=== PATIENT | female | born 2000 | race Caucasian/White ===

== ENCOUNTER → 2018-06-22 15:15 | Outpatient (CLI) | payer MEDICAID, SELFPAY ==
[2018-06-22 18:51] LABS: Pregnancy, Serum, hCG Quali. NEGATIVE Negative (0-9 Nonpreg)
== END ==
PROVIDERS: Visit Provider Obstetrics & Gynecology
DX: N91.2 Amenorrhea, unspecified (principal)
CPT/HCPCS: 84703

== ENCOUNTER → 2018-08-06 15:04 | Outpatient (CLI) | payer MEDICAID, SELFPAY ==
[2018-08-06 17:49] LABS: hCG Titer Quant., Serum 189 mIU/mL (<9 non-preg)
[2018-08-06 18:48] LABS: Chlamydia Trachomatis by PCR Negative (Negative); Neisserai gonorrhoeae by PCR Negative (Negative); Probe Check PASS; Sample Adequacy Control PASS; Specimen Processing Control PASS
== END ==
PROVIDERS: Visit Provider Obstetrics & Gynecology
DX: Z32.01 Encounter for pregnancy test, result positive (principal); Z11.3 Encounter for screening for infections with a predominantly sexual mode of transmission
CPT/HCPCS: 84702; 87491; 87591

== ENCOUNTER → 2018-08-10 08:40 | Outpatient (CLI) | payer MEDICAID, SELFPAY ==
[2018-08-10 10:50] LABS: hCG Titer Quant., Serum 997 mIU/mL (<9 non-preg)
== END ==
PROVIDERS: Visit Provider Obstetrics & Gynecology
DX: Z32.01 Encounter for pregnancy test, result positive (principal); Z11.3 Encounter for screening for infections with a predominantly sexual mode of transmission
CPT/HCPCS: 36415; 84702

== ENCOUNTER → 2018-09-01 15:04 | Outpatient (CLI) | payer MEDICAID, SELFPAY ==
[2017-06-29 10:06] VITALS: BMI 34.4
[2018-09-01 15:42] LABS: Color, Urine Yellow (Yellow); Glucose, Dipstick Normal (Normal); Ketone-Dipstick Negative (Negative); Leukocyte Esterase-Dipstick 500 /ul (Negative); Nitrite-Dipstick Negative (Negative); Occult Blood-Urine Negative /ul (Negative); Protein-Dipstick Negative (Negative); Specific Gravity, Urine 1.015 (1.002-1.030); Urine Bilirubin Dipstick Negative (Negative); Urine Clarity Sl. Cloudy (Clear); Urine Urobilinogen Normal (Normal)
[2018-09-01 15:56] LABS: Absolute Lymphocyte Count 2.31 X10^3/ul (0.83-4.51); Absolute Neutrophil Count 8.7 X10^3/uL (2.0-7.7); Basophil# 0.05 X10^3/uL; Basophil% 0.4 % (0-1); Eosinophil# 0.22 X10^3/uL; Eosinophils% 1.8 % (0-5); Hemoglobin 12.8 g/dl (12.0-15.0); Lymphocyte # 2.31 X10^3/ul (4.0); Lymphocyte % 19.2 % (19-41); Mean Corpuscular Volume 81.1 fL (81-99); Mean Platelet Vol. 9.7 fl (6.2-12.0); Monocyte% 5.8 % (0-10); Neutrophil # 8.71 X10^3/uL (2.7-7.7); Neutrophil % 72.6 % (47-70); Platelet Count 328 K/mm3 (150-450); RBC Distribution Width CV 14.3 % (11.6-14.6); RBC Distribution Width SD 41.3 fl (35.1-43.9); Red Blood Count 4.93 M/mm3 (4.2-5.4)
[2018-09-01 16:01] LABS: Amphetamine Urine VISTA NEGATIVE (<1000 ng/mL); Barbiturate Urine VISTA NEGATIVE (< 200 ng/mL); Benzodiazepine Urine VISTA NEGATIVE (< 200 ng/mL); Cocaine Urine VISTA NEGATIVE (< 300 ng/mL); Ecstacy Urine VISTA NEGATIVE (< 500 ng/mL); Methadone Urine VISTA NEGATIVE (< 300 ng/mL); PCP Urine VISTA NEGATIVE (< 25 ng/mL); POSITIVE COUNT NO; POSITIVE DIFFERENTIAL NO; POSITIVE MORPHOLOGY NO; THC Urine VISTA NEGATIVE (< 50 ng/mL); Vista UDS pH Range 5
[2018-09-01 16:30] LABS: Thyroid Stim Hormone (TSH) 0.92 uIU/mL (0.358-3.74)
[2018-09-01 17:08] LABS: HIV - WCH Non-Reactive (Nonreactive); Rubella IgG 22.5 IU/mL
[2018-09-04 07:03] LABS: Prenatal RPR NONREACTIVE (NONREACTIVE)
[2018-09-04 11:58] LABS: HEPATITIS B SURFACE AG Negative (Negative); Hep C Antibodies <0.1 s/co ratio (0.0-0.9); V-Zoster IgG (Immunity) 725 index (Immune >165)
--- OUTSIDE RECORDS SUMMARY | 2018-10-28 07:18 | XMS RPT_ITS ---
:2000 Author Organization OHIP Care Team Providers Name Role Phone DR ISAIAH BRUNNER Admitting Unavailable KANNAN, DR ISAIAH Lopez Attending Unavailable AYAN GRACIA MD Referring Unavailable AYAN GRACIA MD Consulting Unavailable DR ISAIAH BRUNNER Primary Care Unavailable PROVIDER, UNKNOWN Consulting Unavailable Nghia Ames Attending Unavailable Primay Care Physicia, No Primary Care Unavailable Nghia Ames Attending Unavailable Primay Care Physicia, No Primary Care Unavailable Nghia Ames Attending Unavailable Primay Care Physicia, No Primary Care Unavailable Darrick Duran Attending Unavailable Primay Care Physicia, No Primary Care Unavailable PROBLEMS PROBLEMS DATE TYPE CONDITION / CODE ATTENDING STATUS SOURCE 09/01/2018 Unknown Z34.81 - Encounter Nghia Ames Active [facility] for supervision of Community other normal Hospital , first Repository trimester / Z34.81(ICD-10) 08/10/2018 Unknown Z11.3 - Encounter Nghia Ames [facility] for screening for Community infections with a Hospital predominantly Repository sexual mode of transmission / Z11.3(ICD-10) 08/10/2018 Unknown Z32.01 - Encounter Nghia Ames [facility] for test, Community result positive / Hospital Z32.01(ICD-10) Repository 06/22/2018 Unknown N91.2 - Amenorrhea, Darrick Duran Active [facility] unspecified / Community N91.2(ICD-10) Hospital Repository PROCEDURES PROCEDURES No Procedure Records FoundRESULTS RESULTS URINE DRUG SCREEN Collected: 09/01/2018 Status: F Source: [place] (VISTA) 3:06 PM [facility] REPOSITORY Order Comment: Comments: UNK IMMUNITY List of Drugs Taken or Suspected? UNK TYPE CODE TESTS RESULT OUT OF RANGE REFERENCE UNITS LAB L505.0075 TO BE Normal CONFIRMED Result Comment: CONFIRMATORY TESTING FOR ALL POSITIVE URINE DRUG SCREEN RESULTS WILL ONLY BE SENT OUT UPON PHYSICIAN ORDER. VISTA Urine Drug Screen methods provide only preliminary analytical test results. A more specific alternate chemical method must be used in order to obtain a confirmed analytical result. Gas chromatography/mass spectrometery (GC/MS) is the preferred confirmatory method. Clinical consideration and professional judgement should be applied to any drug of abuse test result, particularly when preliminary positive results are used. URINE TCA TESTING MUST BE ORDERED SEPARATELY. USE TEST MNEMONIC: [facility] LAB L505.5005 VISTA UDS PH 5 Normal LAB L505.5015 <1000 ng/mL AMPHETAMINES Normal NEGATIVE LAB L505.5025 < 200 ng/mL BARBITIURATES Normal NEGATIVE LAB L505.5035 < 200 ng/mL BENZODIAZIPINE Normal NEGATIVE LAB L505.5045 < 300 ng/mL COCAINE Normal NEGATIVE LAB L505.5055 < 500 ng/mL ECSTACY Normal NEGATIVE LAB L505.5065 < 300 ng/mL METHADONE Normal NEGATIVE LAB L505.5075 < 300 ng/mL OPIATES Normal NEGATIVE LAB L505.5085 < 25 ng/mL PCP Normal NEGATIVE LAB L505.5095 < 50 ng/mL THC Normal NEGATIVE Performed By: #### L505.5000 #### [facility] [address] [facility] [place], [address] URINALYSIS, ROUTINE Collected: 09/01/2018 Status: F Source: [place] (DIPSTICK) 3:06 PM [facility] REPOSITORY Order Comment: Comments: UNK IMMUNITY How was Urine Obtained? Urine, Random TYPE CODE TESTS RESULT OUT OF RANGE REFERENCE UNITS LAB L400.3000 Yellow COLOR Normal Yellow LAB L400.3050 Clear Normal CLARITY Sl. Cloudy LAB L400.3200 Normal mg/dl Normal GLUCOSE, UR Normal LAB L400.3300 Negative mg/dL Normal BILIRUBIN URINE Negative LAB L400.3400 Negative mg/dl Normal KETONE UR Negative LAB L400.3465 1.002-1.030 Normal SP.GR. DIPSTX 1.015 LAB L400.3550 5.0 - 8.0 pH UR Normal 6.0 LAB L400.3600 Negative mg/dl PROT Normal DIPSTX Negative LAB L400.3700 Normal mg/dl Normal UROBILI Normal LAB L400.3750 Negative Normal NITRITE UR Negative LAB L400.3780 Negative /ul Normal OCCULT BLOOD-UR Negative LAB L400.3800 Negative /ul High LEUK ESTERASE 500 Performed By: #### L400.2011 #### [facility] [address] [place], [place], [address] CBC W/DIFF, AUTOMATED Collected: 09/01/2018 Status: F Source: [place] 3:06 PM [facility] REPOSITORY TYPE CODE TESTS RESULT OUT OF RANGE REFERENCE UNITS LAB L100.1000 4.4-11.0 K/mm3 High WBC 12.0 LAB L100.1200 4.2-5.4 M/mm3 Normal RBC 4.93 LAB L100.1300 12.0-15.0 g/dl Normal HGB 12.8 LAB L100.1400 37-47 % Normal HCT 40.0 LAB L100.1500 81-99 fL Normal MCV 81.1 LAB L100.1600 27.0-32.0 pg Low MCH 26.0 LAB L100.1700 32-36 g/gl Normal MCHC 32.0 LAB L100.1810 11.6-14.6 % Normal RDW CV 14.3 LAB L100.1820 35.1-43.9 fl Normal RDW SD 41.3 LAB L100.1900 150-450 K/mm3 Normal PLT 328 LAB L100.2000 6.2-12.0 fl Normal MPV 9.7 LAB L100.2100 47-70 % High NEUT% 72.6 LAB L100.2200 19-41 % Normal LY% 19.2 LAB L100.2300 0-10 % Normal MONO% 5.8 LAB L100.2400 0-5 % Normal EO% 1.8 LAB L100.2500 0-1 % Normal BASO% 0.4 LAB L100.2550 0.0-0.9 % Normal IM GRAN % 0.200 Result Comment: IG% - Immature Granulocytes (promyelocytes, myelocytes and metamyelocytes) > 1% indicates that a LEFT SHIFT is Present. LAB L100.2620 2.0-7.7 X10 3/uL High Absolute Neut 8.7 LAB L100.2720 0.83-4.51 X10 3/ul Normal Absolute Lymph 2.31 Performed By: #### L100.0100 #### [facility] [address] [place], [address] THYROID STIM HORMONE Collected: 09/01/2018 Status: F Source: [place] (TSH) 3:06 PM [facility] REPOSITORY TYPE CODE TESTS RESULT OUT OF RANGE REFERENCE UNITS LAB L501.9520 0.358-3.74 uIU/mL Normal TSH 0.92 Performed By: #### L501.9520 #### [facility] [address] [place], [place], [address] RUBELLA IGG Collected: 09/01/2018 Status: F Source: [place] 3:06 PM [facility] REPOSITORY Order Comment: Comments: UNK IMMUNITY TYPE CODE TESTS RESULT OUT OF RANGE REFERENCE UNITS LAB L509.4000 IU/mL Normal Rubella IgG 22.5 Result Comment: Antibody results Interpretation of Immune Status < 5 IU/ml Presumed Non-immune 5 - < 10 IU/ml Equivocal > or = 10 IU/ml Presumed Immune Performed By: #### L509.4000, L3890.6005 #### [facility] [address] [place], [place], [address] HIV - [facility] Collected: 09/01/2018 Status: F Source: [place] 3:06 PM [facility] REPOSITORY Order Comment: Comments: UNK IMMUNITY TYPE CODE TESTS RESULT OUT OF RANGE REFERENCE UNITS LAB L3890.6005 Nonreactive Normal HIV - [facility] Non-Reactive Performed By: #### L509.4000, L3890.6005 #### [facility] [address] [place], [place], [address] T AND S-NO Collected: 09/01/2018 Status: F Source: [place] CHARGE W/PNP 3:06 PM [facility] REPOSITORY Order Comment: Reason for Type AND Screen/Red Cells: Surgery? N TYPE CODE TESTS RESULT OUT OF RANGE REFERENCE UNITS LAB B10.0800 A Normal BLOOD POSITIVE TYPE GEL LAB B100.4050 Normal Ab SCREEN NEGATIVE GEL Performed By: #### B100.7550 #### [facility] [address] [place], [address] RPR Collected: 09/01/2018 Status: F Source: [place] 3:06 PM [facility] REPOSITORY TYPE CODE TESTS RESULT OUT OF REFERENCE UNITS RANGE LAB L700.5100 NONREACTIVE Normal RPR NONREACTIVE Performed By: #### L700.5100 #### [facility] [address] [place], [place], [address] HEPATITIS B SURFACE Collected: 09/01/2018 Status: F Source: [place] AG 3:06 PM [facility] REPOSITORY Order Comment: Comments: UNK IMMUNITY TYPE CODE TESTS RESULT OUT OF RANGE REFERENCE UNITS LAB L3100.0400 Negative Normal HB Negative SURF AG Result Comment: Performed at: - [facility] [id number] Wildlife And Game Protector: Rome Mccall PhD, Phone: [phone] Performed By: #### L3100.0390, L3100.0625, L3400.0000 #### [facility] (refer to report for specific site) refer to report for address and phone number HEPATITIS C ANTIBODIES Collected: 09/01/2018 Status: F Source: [place] 3:06 PM [facility] REPOSITORY Order Comment: Comments: UNK IMMUNITY TYPE CODE TESTS RESULT OUT OF RANGE REFERENCE UNITS LAB L3100.0650 0.0-0.9 s/co ratio Normal HEP C AB <0.1 Result Comment: Negative: < 0.8 Indeterminate: 0.8 - 0.9 Positive: > 0.9 The CDC recommends that a positive HCV antibody result be followed up with a HCV Nucleic Acid Amplification test (236799). Performed By: #### L3100.0390, L3100.0625, L3400.0000 #### [facility] (refer to report for specific site) refer to report for address and phone number V-ZOSTER IGG Collected: 09/01/2018 Status: F Source: [place] (IMMUNITY) 3:06 PM [facility] REPOSITORY Order Comment: Comments: UNK IMMUNITY TYPE CODE TESTS RESULT OUT OF RANGE REFERENCE UNITS LAB L3400.0000 Immune >165 index Normal VZOST IgG 725 [address]1013 Result Comment: Negative <135 Equivocal 135 - 165 Positive >165 A positive result generally indicates exposure to the pathogen or administration of specific immunoglobulins, but it is not indication of active infection or stage of disease. Performed By: #### L3100.0390, L3100.0625, L3400.0000 #### [facility] (refer to report for specific site) refer to report for address and phone number HCG TITER QUANT., Collected: 08/10/2018 Status: F Source: [place] SERUM 8:43 AM [facility] REPOSITORY TYPE CODE TESTS RESULT OUT OF RANGE REFERENCE UNITS LAB L700.8000 <9 non-preg mIU/mL High HCG 997 QUANT. Performed By: #### L700.8000 #### [facility] [address] [place], [place], [address] HCG TITER QUANT., Collected: 08/06/2018 Status: F Source: [place] SERUM 3:06 PM [facility] REPOSITORY TYPE CODE TESTS RESULT OUT OF RANGE REFERENCE UNITS LAB L700.8000 <9 non-preg mIU/mL High HCG 189 QUANT. Performed By: #### L700.8000 #### [facility] [address] [place], [place], [address] CT/NG [facility] BY PCR Collected: 08/06/2018 Status: F Source: [place] 3:06 PM [facility] REPOSITORY TYPE CODE TESTS RESULT OUT OF RANGE REFERENCE UNITS LAB L8200.2100 Negative Normal Chlam Negative Trac PCR LAB L8200.2200 Negative Normal NG by Negative PCR Performed By: #### L8200.2000 #### [facility] [address] [place], [address] ,SERUM,HCG QUALI. Collected: Status: F Source: [place] 06/22/2018 3:17 PM [facility] REPOSITORY Order Comment: PLEASE RUN HCG QUANT IF SERUM PREG IS POSITIVE PER ORDER. TYPE CODE TESTS RESULT OUT OF REFERENCE UNITS RANGE LAB L700.7000 0-9 Nonpreg Negative Normal HCGSQUAL NEGATIVE LAB L700.6700 =>Qualitative mIU/mL Normal HCG Qual < 1 triggr Performed By: #### L700.6800 #### [facility] [address] [place], [address] EMERGENCY DEPARTMENT Observed: 10/14/2017 Status: F Source: [facility] SUMMARY 6:23 AM [facility] EMERGENCY DEPARTMENT SUMMARY NAME NUMBER SEX AGE ADMIT DISC TYPE MED.RECORD# LATESHA Posada [id number] F 17 09/30/17 09/30/17 E.R. [id number] ROOM:[facility] DATE OF :2000 PHYSICIAN NO.:[id number] PHYSICIAN NAME:KAREEM Brunner M.D. PHYSICIAN:SAMIA BOTELLO MD HISTORY OF PRESENT ILLNESS: The patient came to the emergency room with 4 days of cough and congestion. The cough was nonproductive. No history of asthma, but she states that her doctor gives her an inhaler when she has this kind of condition. Positive smoker. No alcohol use. Not febrile. Not employed. She is not . She states that her sputum is not productive and she is just coughing. She denies chest pain, abdominal pain, urinary symptoms, vomiting, or diarrhea. She is examined in the presence of her , seen in room #3 at 1845 hours. She gives her own history. REVIEW OF SYSTEMS: She denies any headache. She denies any sore throat. She denies any influenza shot this year. She denies any strep exposure. She denies any neck discomfort. She denies any asthma. She states that she is coughing a lot and for this she took ibuprofen. PHYSICAL EXAMINATION: On exam, she is alert and oriented. Head is normocephalic. Tympanic membrane, canals, and pinnae normal. Pharynx has no stridor. No hoarseness. No injection. Neck is easily supple. Lungs are clear basically. They are somewhat diminished. There is no expiratory wheeze. There is no prolonged expiratory phase. She is slightly diminished. After aerosols, ventilation is improved. DIAGNOSTIC DATA: Chest x-ray shows no mass, no infiltrate, pneumothorax, free air, or widened mediastinum as interpreted by the radiologist. Rapid strep and influenza were negative. EMERGENCY DEPARTMENT COURSE AND TREATMENT: The patient was given prednisone, Zithromax here in the emergency room, and a prescription for albuterol inhaler, Zithromax and prednisone for home. Her vital signs were stable here in the emergency room. She denied fever, and she does not have a temperature here. DIAGNOSIS: Bronchitis. PLAN/DISPOSITION: Discharged at 2027 hours. The patient was in no distress at discharge and thankful for the care. Follow up is to be with Damion Gracia, her family physician. D: Hayes Ravi MD TD: 06:42 JOB #: [id number] Transcribed by: am 10/01/2017 16:08 [facility] EMERGENCY DEPARTMENT SUMMARY NAME NUMBER SEX AGE ADMIT DISC TYPE MED.RECORD# LATESHA Posada [id number] F 17 09/30/17 09/30/17 E.R. [id number] ROOM:ER-A DATE OF :2000 PHYSICIAN NO.:[id number] PHYSICIAN NAME:KAREEM Brunner M.D. PHYSICIAN:SAMIA BOTELLO MD ELECTRONICALLY SIGNED BY: DICTNAME 10/14/17 06:21 CHEST PA/LAT Observed: 09/30/2017 Status: F Source: [place] 7:[address] [address] Patient: BRENT CHARLTON. Phone#: : 2000 Age: 17 Gender: F Pt. Type: ER Account: [id number] Location: 052 Ordering: ISAIAH BRUNNER Exam Date: 09/30/2017/19:08 Family Phys: ZAKI OTERO Charge Code: 337018 Physician: Mclean Order #: [id number] DLP Dose#: PROCEDURE: X-RAY CHEST PA/LAT 2 VIEWS COMPARISON: None. INDICATIONS: Shortness of breath FINDINGS: LUNGS: Normal. No significant pulmonary parenchymal abnormalities. VASCULATURE: Normal. Unremarkable pulmonary vasculature. CARDIAC: Normal. No cardiac silhouette abnormality or cardiomegaly. MEDIASTINUM: Normal. No visible mass or adenopathy. PLEURA: Normal. No effusion or pleural thickening. BONES: Normal. No fracture or visible bony lesion. OTHER: Negative. CONCLUSION: No acute disease. Dictated by: Ness Hernandes MD on 09/30/2017 at 19:48 Approved by: Ness Hernandes MD on 09/30/2017 at 19:48 Observed: 09/30/2017 Status: F Source: [facility] RAPID STREP 7:15 PM [facility] REPOSITORY Rapid Strep NEG:GRP A STREP INTERNAL QC PASS EXTERNAL QC DONE? YES Performed By: #### [id number] #### [place] [address] Observed: 09/30/2017 Status: F Source: [place] INFLUENZA VIRUS RAPID 7:15 PM [facility] A/B REPOSITORY INFLUENZA A NEGATIVE INFLUENZA B NEGATIVE INTERNAL NEG QC PASS INTERNAL POS QC PASS EXTERNAL QC DONE? YES ACCORDING TO THE ARTIST COLOR SEPARATION, THE PERFORMANCE OF THIS TEST HAS NOT BEEN VALIDATED FOR DETECTION OF THE 2009 H1N1 INFLUENZA A VIRUS OF SWINE ORIGIN. THE TEST HAS BEEN DEMONSTRATED TO DETECT MULTIPLE STRAINS OF INFLUENZA A OF HUMAN ORIGIN IN CLINICAL SPECIMENS,BUT THE SWINE FLU INVOLVED IN THE CURRENT OUTBREAK IS A NEWLY EMERGENT STRAIN.THEREFORE, THE PERFORMANCE OF CURRENT RAPID TESTS,INCLUDING THIS ONE, HAS NOT BEEN ESTABLISHED FOR THE DETECTION OF THE CURRENT SWINE FLU IN INFECTED PATIENTS. Performed By: #### [id number] #### [place] [address] Observed: 09/30/2017 Status: F Source: [email or web address] CULT STREP REFLEX 7:15 PM [facility] ONLY REPOSITORY CULT STREP REFLEX ONLY _REFLEX STREP SCREEN CULTURE ONLY_ M I C R O B I O L O G Y R E P O R T FINAL Antimicrobial Susceptibility and Organism Identification Report Specimen Number : [id number] Requested : 09/30/17 Specimen Source : THROAT Collected : 09/30/17 19:15 [place] [facility]olation : Emergency Room Received : 09/30/17 19:15 Requesting Physician : LANE BENJAMIN Patient/Specimen Tests and Comments Specimen Comments FINAL REPORT: Negative for Group A Beta Strep Tech : Source : THROAT ID # : [id number] FINAL Report Date : / / : Collected : 09/30/17 19:15 10/02/17.1010.JLN. 10/02/17.1010.JLN.COMPLETE Performed By: #### [id number] #### [facility],[address] [place] [address] ALLERGIES ALLERGIES DATE TYPE / CODE NAME / CODE REACTION SEVERITY SOURCE 10/15/2016 Drug No Known Unknown [place] Allergy/[id number](S Allergies/F0019 Replaced By [facility] NOMED CT) 36982(RXNORM) Hospital Repository Miscellaneous No Known Drug Moderate [facility] Allergy/[id number](S Allergies ([facility]OM[facility]) Modifier) Hospital (Qualifier Repository Value) ENCOUNTERS ENCOUNTERS ADMIT/DISCHARGE ACCOUNT ADMITTING ENCOUNTER LOCATION SOURCE NUMBER CLASS 09/01/2018 [id number] Ambulatory [address] ing:[place] Repository 08/10/2018 [id number] Ambulatory [facility] [address] [facility] ing:[place] Repository 08/06/[id number] ing:[place] Repository 06/22/2018 [id number] Ambulatory [facility] 3 [facility] ing:[place] Repository 09/30/2017/ [id number] DR ISAIAH BRUNNER [facility] [place] [address] 7 C oom: ERBed: A [facility] Repository PAYERS PAYERS ENCOUNTER GUARANTOR PAYER SUBSCRIBER SOURCE 09/01/2018 Brent [id number] Insurance:NORISCherelle Waters: [facility] licy Number: [id number], [id number] [place] [address]Qma: Date:2018-09-01 [address]ATTN: CLAIMS () [place] [address]CJ: 09/01/2018 Secondary NOT GIVENUNK [place] Insurance:SELF PAY [facility] Number: Effective Repository Date:2018-09-01 08/10/2018 Brent Posada Primary Brent Posada [facility] [id number] Insurance:CARESOURCEPo StevensDOB: [facility] licy Number: [id number], [id number] Repository [place] [address]Aam: Date:2018-08-10P [address]ATTN: CLAIMS (HP) [place] [address]DP: 08/10/2018 Secondary NOT GIVENUNK [facility] Insurance:SELF PAY [facility] Number: Effective Repository Date:2018-08-10 08/06/2018 Brent Posada Primary Brent Posada [facility] [id number] Insurance:CARESOURCEPo StevensDOB: [facility] licy Number: [id number], [id number] Repository [place] [address]Cit: Date:2018-08-06P [address]ATTN: CLAIMS () [place] [address]MP: 08/06/2018 Secondary NOT GIVENUNK [place] Insurance:SELF PAY [facility] Number: Effective Repository Date:2018-08-06 06/22/2018 Brent Posada Primary Brent Posada [place] [id number] Insurance:CARESOURCEPo StevensDOB: [facility] licy Number: [id number], [id number] Repository [place] [address]Ukp: Date:2018-06-22P [address]ATTN: CLAIMS () [place] [address]CP: 06/22/2018 Secondary NOT GIVENUNK [place] Insurance:SELF PAY [facility] Number: Effective Repository Date:2018-06-22 09/30/2017 DEVIN Fofana Primary Brent Swetha Luis Chaidez STEVENSDOB: Insurance:CARESOURCE StevDOB: [facility] [id number] [id number] [address] S Number: [id number] S Repository [facility] [id number] Lawrence BERMUDEZ Date:Plan Name:X3 SHOAIB [id number]: Id [id number] ()
== END ==
PROVIDERS: Visit Provider Obstetrics & Gynecology
DX: Z34.81 Encounter for supervision of other normal pregnancy, first trimester (principal)
CPT/HCPCS: 36415; 80307; 81002; 84443; 85025; 86703; 86762; 86787; 86803; 87340

== ENCOUNTER → 2019-01-19 13:44 | Outpatient (CLI) | payer MEDICAID, SELFPAY ==
[2019-01-19 16:03] LABS: Glucose Challenge Gest 1H 50g 95 mg/dL (70-140)
[2019-01-19 16:23] LABS: Hematocrit 36.4 % (37-47); Hemoglobin 11.6 g/dl (12.0-15.0); Mean Corp Hgb Conc 31.9 g/gl (32-36); Mean Corpuscular Hgb 26.4 pg (27.0-32.0); Mean Corpuscular Volume 82.7 fL (81-99); Mean Platelet Vol. 10.3 fl (6.2-12.0); Platelet Count 266 K/mm3 (150-450); RBC Distribution Width CV 13.5 % (11.6-14.6); RBC Distribution Width SD 39.3 fl (35.1-43.9); White Blood Count 7.1 K/mm3 (4.4-11.0)
[2019-01-19 16:37] LABS: Scan Indicated on CBC? Y/N NO
== END ==
PROVIDERS: Visit Provider Obstetrics & Gynecology
DX: Z34.82 Encounter for supervision of other normal pregnancy, second trimester (principal)
CPT/HCPCS: 36415; 82950; 85027

== ENCOUNTER → 2019-03-11 | Outpatient (CLI) | payer MEDICAID, SELFPAY | END | disposition home or self-care (01) | LOC: WOBLAB 11:08 → LABSPEC 11:10 | PROVIDERS: Visit Provider Obstetrics & Gynecology | DX: Z36.85 Encounter for antenatal screening for Streptococcus B (principal) | CPT/HCPCS: 87081 ==

== ENCOUNTER 2019-04-15 00:43 | Inpatient (IN) | payer MEDICAID, SELFPAY ==
[2019-04-15] MEDS: Lactated Ringers 1,000 ML 50 ML IV ×2 (01:05→02:43)
[2019-04-15 01:17] LABS: Absolute Lymphocyte Count 2.27 X10^3/ul (0.83-4.51); Absolute Neutrophil Count 7.5 X10^3/uL (2.0-7.7); Basophil# 0.02 X10^3/uL; Basophil% 0.2 % (0-1); Eosinophil# 0.15 X10^3/uL; Eosinophils% 1.4 % (0-5); Hematocrit 32.1 % (37-47); Hemoglobin 10.1 g/dl (12.0-15.0); Lymphocyte # 2.27 X10^3/ul (4.0); Lymphocyte % 21.4 % (19-41); Mean Corp Hgb Conc 31.5 g/gl (32-36); Mean Corpuscular Volume 76.4 fL (81-99); Mean Platelet Vol. 9.1 fl (6.2-12.0); Monocyte# 0.65 X10^3/uL; Monocyte% 6.1 % (0-10); Neutrophil # 7.47 X10^3/uL (2.7-7.7); Neutrophil % 70.6 % (47-70); POSITIVE COUNT NO; POSITIVE DIFFERENTIAL NO; POSITIVE MORPHOLOGY NO; Platelet Count 281 K/mm3 (150-450); RBC Distribution Width CV 14.4 % (11.6-14.6); RBC Distribution Width SD 39.7 fl (35.1-43.9); White Blood Count 10.6 K/mm3 (4.4-11.0)
[2019-04-15 01:24] VITALS: BMI 35.3
[2019-04-15] MEDS: fentaNYL-bupivacaine (epidural) 100 ML BAG EPIDURAL (01:50)
[2019-04-15] MEDS: Oxytocin 30 units/NS 500 ml 30 UNITS/500 ML IV.SOLN 334 UNITS IV (05:29)
--- NOTE | 2019-04-15 05:43 | OP.PCM_ITS ---
Vaginal Delivery Maternal Presentation: Active Labor, Spontaneous Rupture of Membranes Amniotic Membrane Rupture Type: Spontaneous at home Amniotic Fluid Description: Clear Final ARTIE: 04/14/19 Final ARTIE Source: US <20 weeks Gestational age: 40 Weeks and 1 Days Date of Procedure: 04/15/19 Pre-Operative Diagnosis: IUP Post-Operative Diagnosis: IUP Surgery/ Procedure Performed: Spontaneous Vaginal Delivery Anesthesiologist: Claude Sanz Type of Anesthesia: Epidural Description of Procedure: Spontaneous vaginal delivery of a viable female with Apgars of 8/9 from an occiput anterior presentation with clear amniotic fluid and normal three- vessel placenta. No episiotomy or lacerations. Sponges okay. Delivery physician: Darrick Duran MD. Presentation: Vertex Placental Delivery Description: Spontaneous Placenta Disposition: [facility] Cord Vessel Description: 3 Vessels Cord Entanglement: None Estimated Blood Loss: 250cc Infant A gender: Female (1 minute): 8 (5 minute): 9 Episiotomy Description: None Laceration: None Medications given after delivery: IV Pitocin Complications: None
--- NOTE | 2019-04-15 05:45 | DCINST_ITS ---
May resume sexual activity in: 4-6 weeks Additional Activity Instructions:: Nothing in the vagina for 4-6 weeks. You may return to work/school in 6 weeks. Call your doctor if you observe: Fever of 101 or Higher, Inability to urinate, Inability to have a bowel movement, Using more than one pad per hour Additional Instructions: If you experience any of the following, contact your healthcare provider. * Bleeding that soaks a pad every hour for 2 hours * Unrelieved incision or abdominal pain * Swelling, redness, discharge or bleeding from your incision or episiotomy site * Your incision begins to separate * Problems urinating (including inability to urinate or burning while urinating). * Visual changes * Severe headache * Flu-like symptoms * Pain or redness in one of both of your breasts * Pain, warmth, tenderness or swelling in your legs, especially the calf area * Frequent nausea and vomiting * Symptoms of depression or anxiety If you experience any of the following, call 911 or go to the nearest Emergency Room. * Chest pain * Problems breathing * Seizure activity * Partial or complete paralysis of a body part, slurred speech, weakness or drooping of the face, or a sudden inability to walk or hold your balance Allergies/Adverse Reactions: Allergies No Known Allergies Allergy (Verified 04/15/19 01:22) Please Follow Up With: Darrick Duran MD - [phone] When: Call to make an appointment with your doctor in 6 weeks. Primary Care Physician: Care Physician,No Primary [Primary Care Provider] - Test Results: Test results from this visit will be discussed in further detail at your follow- up appointment, if applicable.
--- NOTE | 2019-04-15 05:45 | PCM.DCVAG ---
May resume sexual activity in: 4-6 weeks Additional Activity Instructions:: Nothing in the vagina for 4-6 weeks. You may return to work/school in 6 weeks. Call your doctor if you observe: Fever of 101 or Higher, Inability to urinate, Inability to have a bowel movement, Using more than one pad per hour Additional Instructions: If you experience any of the following, contact your healthcare provider. Bleeding that soaks a pad every hour for 2 hours Unrelieved incision or abdominal pain Swelling, redness, discharge or bleeding from your incision or episiotomy site Your incision begins to separate Problems urinating (including inability to urinate or burning while urinating). Visual changes Severe headache Flu-like symptoms Pain or redness in one of both of your breasts Pain, warmth, tenderness or swelling in your legs, especially the calf area Frequent nausea and vomiting Symptoms of depression or anxiety If you experience any of the following, call 911 or go to the nearest Emergency Room. Chest pain Problems breathing Seizure activity Partial or complete paralysis of a body part, slurred speech, weakness or drooping of the face, or a sudden inability to walk or hold your balance Allergies/Adverse Reactions: Allergies No Known Allergies Allergy (Verified 04/15/19 01:22) Please Follow Up With: Darrick Duran MD - [phone] When: Call to make an appointment with your doctor in 6 weeks. Primary Care Physician: Care Physician,No Primary [Primary Care Provider] - Test Results: Test results from this visit will be discussed in further detail at your follow-up appointment, if applicable.
[2019-04-15] MEDS: Oxytocin 30 units/NS 500 ml 30 UNITS/500 ML IV.SOLN 167 UNITS IV (06:00)
[2019-04-15] MEDS: 0.9% Saline Lock 10 ML Syringe IV (07:00)
[2019-04-15 11:57] VITALS: BP 120/73; PULSE 82; RESP 14; TEMP 36.7
[2019-04-15 16:00] VITALS: BP 112/60; PULSE 75; RESP 12; TEMP 37
[2019-04-15] MEDS: Ibuprofen 600 MG Tablet PO (16:26)
[2019-04-15 20:54] VITALS: BP 120/77; PULSE 85; RESP 16; TEMP 36.3; O2SAT 98
[2019-04-15 23:49] VITALS: BP 105/64; PULSE 80; RESP 16; TEMP 36.6; O2SAT 98
[2019-04-16] MEDS: Ibuprofen 600 MG Tablet PO ×2 (01:31→10:23)
[2019-04-16 04:10] VITALS: BP 105/58; PULSE 66; RESP 16; TEMP 36.7; O2SAT 97
--- NOTE | 2019-04-16 07:24 | PCM.PN.OB ---
Subjective: PPD#1 Doing well. baby has passed all 24 hr testing. Pt would like to go home today Has 1 yr at home. Nursing well. No concerns voiced. - Physical Exam General: Alert, Oriented x3, Cooperative, No apparent distress HEENT: Atraumatic Neck: Supple Neurological: Cranial nerves II-XII grossly intact Psych/Mental Status: Normal Affect Vital Signs Temp Pulse Resp BP Pulse Ox 98.0 F 66 16 105/58 L 97 04/16/19 04:10 04/16/19 04:10 04/16/19 04:10 04/16/19 04:10 04/16/19 04:10 Oxygen Delivery Method Room Air Weight: 87.543 kg Body Mass Index (BMI) 35.3 Intake and Output for Last 24 Hours 04/14/19 04/15/19 04/16/19 23:59 23:59 23:59 Intake Total 1646 / 1646 Output Total 700 / 700 Balance 946 / 946 Medical Necessity - Tobacco Use Smoking Status: Former smoker Assessment/Plan PPD#1 Stable pp. GBS negative in . Dischg home today if baby is relased., RTO for 6 wk pp check, prn sooner.
[2019-04-16 09:10] VITALS: BP 101/64; PULSE 74; RESP 20; TEMP 36.3; O2SAT 96
== END 2019-04-16 13:45 | disposition home or self-care (01) | DRG 560 ==
PROVIDERS: Admitting Provider Obstetrics & Gynecology; Visit Provider Obstetrics & Gynecology
DX: O80 Encounter for full-term uncomplicated delivery (principal); Z37.0 Single live birth; Z3A.40 40 weeks gestation of pregnancy; Z87.891 Personal history of nicotine dependence
CPT/HCPCS: 59050; 85025; 86850; 86900; 99218; J7120; A4216; G0378

== ENCOUNTER → 2019-06-02 | Outpatient (CLI) | payer MEDICAID, SELFPAY ==
[2019-06-02 14:22] LABS: hCG Titer Quant., Serum 1 mIU/mL (1-3)
[2019-06-02 14:24] LABS: Progesterone Level 0.42 ng/mL (See Comment)
== END | disposition home or self-care (01) ==
LOC: WOBLAB 10:56
PROVIDERS: Visit Provider Obstetrics & Gynecology
DX: N91.2 Amenorrhea, unspecified (principal); Z12.4 Encounter for screening for malignant neoplasm of cervix
CPT/HCPCS: 36415; 84144; 84702; 88175; G0145